=== PATIENT | female | born 1995 | race Caucasian/White ===

== ENCOUNTER 2021-10-30 10:11 | Outpatient (CLI) | payer OTHER, SELFPAY ==
[2021-10-30 11:27] LABS: Basophils Percent Auto 0.4 % (0.2-1.2); Eosinophils Percent Auto 0.3 % (0-4.4); Hematocrit 31.9 % (37.0-47.0); Hemoglobin 10.4 g/dL (12.0-15.0); Immature Granulocyte Absolute 0.06 K/mm3 (0.00-0.031); Immature Granulocyte Percent A 0.5 % (0-0.5); Lymphocytes Absolute Auto 1.28 K/mm3 (0.9-3.2); Lymphocytes Percent Auto 11.3 % (18.3-44.2); Mean Corpuscular HGB Conc 32.6 g/dl (32-36); Mean Corpuscular Hemoglobin 30.9 pg (26-34); Mean Corpuscular Volume 94.7 fl (80-100); Mean Platelet Volume 9.5 fl (7.4-10.4); Monocytes Absolute Auto 0.7 K/mm3 (0.1-0.6); Neutrophils Absolute Auto 9.3 K/mm3 (1.3-6.7); Neutrophils Percent Auto 81.5 % (45.5-73.1); Platelet Count Result 275 k/mm3 (150-375); Red Blood Count 3.37 M/mm3 (4.2-5.4); White Blood Count 11.3 K/mm3 (4.5-10.0)
[2021-10-30 11:41] LABS: Glucose 1 Hour PP 50gm Dose 109 mg/dL
== END 2021-10-30 10:12 | disposition home or self-care (01) ==
PROVIDERS: Visit Provider Obstetrics & Gynecology
DX: Z34.02 Encounter for supervision of normal first pregnancy, second trimester (principal)
CPT/HCPCS: 36415; 82947; 85025; 85461; 86900; 86901

== ENCOUNTER 2021-12-11 13:17 | Outpatient (CLI) | payer OTHER, SELFPAY ==
[2021-12-11 19:30] LABS: Basophils Percent Auto 0.3 % (0.2-1.2); Eosinophils Percent Auto 0.3 % (0-4.4); Hematocrit 32.4 % (37.0-47.0); Hemoglobin 10.6 g/dL (12.0-15.0); Immature Granulocyte Absolute 0.06 K/mm3 (0.00-0.031); Immature Granulocyte Percent A 0.6 % (0-0.5); Lymphocytes Absolute Auto 1.13 K/mm3 (0.9-3.2); Lymphocytes Percent Auto 12.2 % (18.3-44.2); Mean Corpuscular HGB Conc 32.7 g/dl (32-36); Mean Corpuscular Hemoglobin 31.2 pg (26-34); Mean Corpuscular Volume 95.3 fl (80-100); Monocytes Absolute Auto 0.4 K/mm3 (0.1-0.6); Monocytes Percent Auto 4.7 % (2.6-8.5); Neutrophils Absolute Auto 7.6 K/mm3 (1.3-6.7); Neutrophils Percent Auto 81.9 % (45.5-73.1); Platelet Count Result 234 k/mm3 (150-375); Red Cell Distribution Width 13.2 % (11.5-14.5); White Blood Count 9.2 K/mm3 (4.5-10.0)
[2021-12-11 22:33] LABS: HIV 1/2 Ab P24 Ag Result Negative (Negative)
[2021-12-12 16:31] LABS: Rapid Plasma Reagin Non-Reactive (NonReactive)
== END 2021-12-11 13:18 | disposition home or self-care (01) ==
PROVIDERS: Visit Provider Obstetrics & Gynecology
DX: Z34.03 Encounter for supervision of normal first pregnancy, third trimester (principal); Z3A.00 Weeks of gestation of pregnancy not specified
CPT/HCPCS: 36415; 85025; 86592; 86703; G0432

== ENCOUNTER 2022-01-13 15:27 | Observation (INO) | payer OTHER, SELFPAY ==
[2022-01-13 15:48] VITALS: BP 125/73; PULSE 93
[2022-01-13 15:51] VITALS: BMI 26.4
[2022-01-13 16:00] VITALS: BP 116/74; PULSE 91
[2022-01-13 16:15] VITALS: BP 118/72; PULSE 82
[2022-01-13 16:16] LABS: Add Urine Microscopic? YES; Appearance Urine Clear (Clear); Bilirubin Urine Negative (Negative); Blood Urine Negative (Negative); Color Urine Yellow (Yellow); Glucose Urine UA Negative (Negative); Ketones Urine Negative (Negative); Leukocyte Esterase Ur 1+ LEU/UL (NEGATIVE); Nitrate Urine Negative (Negative); Protein Urine Negative (Negative); Urobilinogen Urine 0.2 mg/dL (<2.0); pH Urine 6.5 (5.0-9.0)
[2022-01-13 16:25] LABS: Bacteria Urine 2+ /hpf; Mucus Urine Rare /lpf; Squamous Epithelial Cell Urine Occasional /hpf (Few)
[2022-01-13 16:30] VITALS: BP 121/77; PULSE 88
[2022-01-13 16:47] VITALS: BP 117/72; PULSE 78
[2022-01-13 17:00] VITALS: BP 114/68; PULSE 83
--- NOTE | 2022-02-03 11:44 | P.PNOB_ITS ---
OB - Triage/Final Diagnosis Visit Information Comments/Additional reasons for admission: I have assessed the risk for this patient, Nisa Smallwood, and determined that she would benefit from observation care. Evaluation Laboratory results: Laboratory Tests 01/13/22 16:02 Urine Color Yellow Urine Appearance Clear Urine pH 6.5 Ur Specific [place] 1.010 Urine Protein Negative Urine Glucose (UA) Negative Urine Ketones Negative Ur Blood (Man) Negative Urine Nitrate Negative Urine Bilirubin Negative Urine Urobilinogen 0.2 Ur Leukocyte Esterase 1+ H Urine RBC 3-5 H Urine WBC 7-9 H Ur Squamous Epith Cells Occasional Urine Bacteria 2+ H Urine Mucus Rare Final Diagnosis (1) Pelvic pain affecting : Code(s): O26.899 - Other specified related conditions, unspecified trimester; R10.2 - Pelvic and perineal pain Status: Acute
== END 2022-01-13 17:35 | disposition home or self-care (01) ==
PROVIDERS: Admitting Provider Student in an Organized Health Care Education/Training Program; Visit Provider Student in an Organized Health Care Education/Training Program
DX: O26.893 Other specified pregnancy related conditions, third trimester (principal); R10.2 Pelvic and perineal pain; Z3A.35 35 weeks gestation of pregnancy
CPT/HCPCS: 81001; 87086; G0378; G0379

== ENCOUNTER 2022-01-26 11:09 | Outpatient (CLI) | payer OTHER, SELFPAY ==
[2022-01-26] VITALS (17 sets, daily range): BP systolic 106–126; BP diastolic 51–72; PULSE 64–85; O2SAT 97–100
[2022-01-26 12:00] LABS: Alanine Aminotransferase 16 U/L (6-35); Albumin Level 3.5 g/dL (3.5-5.1); Alkaline Phosphatase 137 U/L (38-126); Anion Gap 10 mmol/L (8-16); Aspartate Amino Transferase 21 U/L (14-36); Bilirubin,Total 0.2 mg/dL (0.2-1.3); Blood Urea Nitrogen 6 mg/dL (7-17); Calcium 9.5 mg/dL (8.4-10.2); Carbon Dioxide 21 mmol/L (22-30); Chloride 103 mmol/L (98-107); Estimated Glomerular Filt Rate > 60; Glucose 87 mg/dL (65-110); Potassium 3.7 mmol/L (3.4-5.0); Sodium 134 mmol/L (137-145); Uric Acid 5.5 mg/dL (2.5-7.5)
[2022-01-26 12:01] LABS: Basophils Percent Auto 0.2 % (0.2-1.2); Eosinophils Percent Auto 0.1 % (0-4.4); Hematocrit 30.4 % (37.0-47.0); Hemoglobin 10.4 g/dL (12.0-15.0); Immature Granulocyte Absolute 0.04 K/mm3 (0.00-0.031); Immature Granulocyte Percent A 0.5 % (0-0.5); Lymphocytes Absolute Auto 1.05 K/mm3 (0.9-3.2); Lymphocytes Percent Auto 12.4 % (18.3-44.2); Mean Corpuscular HGB Conc 34.2 g/dl (32-36); Mean Corpuscular Volume 90.5 fl (80-100); Mean Platelet Volume 10.5 fl (7.4-10.4); Monocytes Absolute Auto 0.5 K/mm3 (0.1-0.6); Neutrophils Absolute Auto 6.9 K/mm3 (1.3-6.7); Neutrophils Percent Auto 80.8 % (45.5-73.1); Platelet Count Result 223 k/mm3 (150-375); Red Blood Count 3.36 M/mm3 (4.2-5.4); White Blood Count 8.5 K/mm3 (4.5-10.0)
[2022-01-26 12:02] LABS: Appearance Urine Clear (Clear); Bilirubin Urine Negative (Negative); Blood Urine Negative (Negative); Color Urine Yellow (Yellow); Glucose Urine UA Negative (Negative); Ketones Urine Negative (Negative); Leukocyte Esterase Ur 2+ LEU/UL (NEGATIVE); Nitrate Urine Negative (Negative); Protein Urine Negative (Negative); Urobilinogen Urine 0.2 mg/dL (<2.0); pH Urine 6.5 (5.0-9.0)
[2022-01-26 12:09] LABS: Creatinine Urine 25.7 mg/dL; Total Protein Urine Random 9 mg/dL; Ur Ttl Prot Creatinine Ratio 0.35 mg/mg (0-0.20)
[2022-01-26 12:14] LABS: Add Urine Microscopic? YES; Bacteria Urine 2+ /hpf; Squamous Epithelial Cell Urine Few /hpf (Few)
--- NOTE | 2022-01-26 12:50 | PC.NURSE ---
Dr. Solis notified of [facility] lab results and blood pressure readings. Reactive NST. Per Dr. Solis ok to discharge home and follow up with regular OB appointment on Wednesday. January 28.
== END 2022-01-26 12:34 | disposition home or self-care (01) ==
LOC: ANHOBOP 11:14 → ANHOBPP 11:14
PROVIDERS: Visit Provider Student in an Organized Health Care Education/Training Program
DX: O13.9 Gestational [pregnancy-induced] hypertension without significant proteinuria, unspecified trimester (principal); Z3A.00 Weeks of gestation of pregnancy not specified
CPT/HCPCS: 36415; 59025; 80053; 81001; 82570; 84156; 84550; 85025; 87086; 99199

== ENCOUNTER 2022-02-10 06:33 | Inpatient (IN) | payer OTHER, SELFPAY ==
[2022-02-10] VITALS (176 sets, daily range): BP systolic 99–155; BP diastolic 60–98; PULSE 58–130; RESP 16–17; TEMP 36.4–37.2; O2SAT 91–100; BMI 28.7
[2022-02-10] MEDS: LACTATED RINGERS 1,000 ML 125 ML IV CONT ×3 (07:28→15:12)
[2022-02-10 07:33] LABS: Basophils Percent Auto 0.3 % (0.2-1.2); Eosinophils Absolute Auto 0.1 K/mm3 (0-0.3); Eosinophils Percent Auto 0.5 % (0-4.4); Hematocrit 29.7 % (37.0-47.0); Immature Granulocyte Absolute 0.07 K/mm3 (0.00-0.031); Immature Granulocyte Percent A 0.8 % (0-0.5); Lymphocytes Absolute Auto 1.26 K/mm3 (0.9-3.2); Lymphocytes Percent Auto 13.7 % (18.3-44.2); Mean Corpuscular HGB Conc 33.7 g/dl (32-36); Mean Corpuscular Hemoglobin 30.2 pg (26-34); Mean Corpuscular Volume 89.7 fl (80-100); Mean Platelet Volume 10.7 fl (7.4-10.4); Monocytes Absolute Auto 0.6 K/mm3 (0.1-0.6); Monocytes Percent Auto 6.6 % (2.6-8.5); Neutrophils Absolute Auto 7.2 K/mm3 (1.3-6.7); Neutrophils Percent Auto 78.1 % (45.5-73.1); Platelet Count Result 223 k/mm3 (150-375); Red Blood Count 3.31 M/mm3 (4.2-5.4); Red Cell Distribution Width 12.8 % (11.5-14.5); White Blood Count 9.2 K/mm3 (4.5-10.0)
[2022-02-10] MEDS: OXYTOCIN 30 UNITS/NS 500 ML 30 UNITS/500 ML BAG 6 UNITS IV CONT (07:38)
--- NOTE | 2022-02-10 07:59 | LDADM ---
This patient, Nisa Smallwood, was admitted to Labor/Delivery/Recovery 104 on 02/10/22 at 06:33. Plans for labor, pain management and were discussed with patient. Patient/family oriented to hospital policies and general routines including ID bracelet, bed and alarms, visiting hours, pain management, procedures, bathroom and other care routines, personal items, smoking policy, room service/diet and guest tray routines, security routines, and visiting hours. Patient/Family are encouraged to report perceived risks to care and to ask questions if they do not understand what they are told or what they should do. See OBIX for further documentation.
[2022-02-10] MEDS: LACTATED RINGERS 1,000 ML 999 ML IV CONT (09:13)
[2022-02-10] MEDS: ONDANSETRON INJ 4 MG/2 ML VIAL IV PUSH ×2 (09:15→15:47)
[2022-02-10] MEDS: fentaNYL CITRATE INJ (*CRX) 100 MCG/2 ML VIAL IV PUSH (09:16)
--- NOTE | 2022-02-10 09:37 | WPDANESEPPF ---
Anes - Initial Pre Proc Eval Date/Time: 02/10/22 09:37 Surgeon: Lennie Solis MD Pre Op Diagnosis: iol Patient Data Age: 27 Gender: F Height: 1.55 m Weight: 69 kg Last Vital Signs Temp 37.2 C 02/10/22 09:01 Pulse 67 02/10/22 09:30 BP 144/81 H 02/10/22 09:30 Pulse Ox 96 02/10/22 09:37 Allergies Allergy/AdvReac Type Severity Reaction Status Date / Time No Known Allergies Allergy Verified 02/05/22 08:20 Home Medications Medication Instructions Recorded Confirmed Type ferrous sulfate 325 mg (65 mg 325 mg PO DAILY #90 tabs 12/15/21 02/10/22 Rx iron) tablet metoprolol succinate 25 mg 25 mg PO PRN PRN SVT 01/13/22 02/10/22 History tablet,extended release 24 hr buspirone 10 mg tablet 10 mg PO DAILY 02/10/22 02/10/22 History Laboratory Tests 02/10/22 02/10/22 02/10/22 07:19 07:19 07:19 WBC 9.2 K/mm3 K/mm3 (4.5-10.0) RBC 3.31 M/mm3 L M/mm3 (4.2-5.4) Hgb 10.0 g/dL L g/dL (12.0-15.0) Hct 29.7 % L % (37.0-47.0) MCV 89.7 fl fl (80-100) MCH 30.2 pg pg (26-34) MCHC 33.7 g/dl g/dl (32-36) RDW 12.8 % % (11.5-14.5) Plt Count 223 k/mm3 k/mm3 (150-375) MPV 10.7 fl H fl (7.4-10.4) Immature Gran % (Auto) 0.8 % H % (0-0.5) Neut % (Auto) 78.1 % H % (45.5-73.1) Lymph % (Auto) 13.7 % L % (18.3-44.2) Elk % (Auto) 6.6 % % (2.6-8.5) Eos % (Auto) 0.5 % % (0-4.4) Baso % (Auto) 0.3 % % (0.2-1.2) Lymph # (Auto) 1.26 K/mm3 K/mm3 (0.9-3.2) Elk # (Auto) 0.6 K/mm3 K/mm3 (0.1-0.6) Eos # (Auto) 0.1 K/mm3 K/mm3 (0-0.3) Baso # (Auto) 0.0 K/mm3 K/mm3 (0.0-0.1) Abs Immat Gran (auto) 0.07 K/mm3 H K/mm3 (0.00-0.031) Absolute Neuts (auto) 7.2 K/mm3 H K/mm3 (1.3-6.7) Absolute Nucleated RBC 0.0 K/mm3 K/mm3 (0.0-0.012) Nucleated RBC % 0.0 % % (0.0-0.2) RPR Pending Blood Type A Positive Antibody Screen Negative Patient hx anesthesia problems: none Family hx anesthesia problems: none Results Review: All pre-operative results and documents have been reviewed as part of the pre-operative evaluation. [facility] Past Medical History Medical History SVT (supraventricular tachycardia) Family History Family History Father Asthma Mother Heart disease Hearing loss, bilateral Grandparent Skin cancer Diabetes mellitus Heart disease Breast cancer Asthma Social History Social History Smoking status: Never smoker Second hand tobacco smoke exposure: No Alcohol intake: never Substance use: never Gender identity (if verbalized by the patient): Female Sexual Orientation (if Verbalized by the Patient): Straight or Heterosexual Spiritual care concerns: No Agree to blood products: Yes Anes - Eval Final PreProcedure Day of Procedure 02/10/22 09:37 Patient weight: overweight Heart: regular rate and rhythm Lungs: clear to auscultation and normal air movement Airway: Mallampati scale class II Neurological: alert and oriented Last oral intake: >/= 8 hours ASA classification: II Emergent: no Anesthetic plan: proceed Anesthesia type and monitoring: regional epidural Results Review: All pre-operative results and documents have been reviewed as part of the pre-operative evaluation. Informed Consent: The patient's anesthetic plan and its attendant risks and benefits were discussed with the patient/family/POA. Questions were solicited and answers provided to the satisfaction of the patient/family/POA.
--- NOTE | 2022-02-10 13:12 | PM.IMHP ---
H&P: HPI History of Present Illness Date/Time: 02/10/22 13:12 Chief Complaint: Elective induction of labor Narrative: Patient is a 27-year-old LMP 05/09/2021 currently 39 weeks 4 days gestation with DAYLIN 02/13/2022. Patient is dated by LMP consistent with ultrasound on 07/10/2021 at 9 weeks gestation. Patient presents to labor and delivery for a scheduled elective induction of labor. In general, patient doing well today. Reports occasional contractions. Denies any vaginal bleeding or leakage of fluid. Reports good movement. Review of Systems Review of Systems: All systems reviewed & are unremarkable except as noted in HPI and below Constitutional: Constitutional: Reports as per HPI and Reports no additional constitutional complaints Eyes: Eyes: Reports as per HPI and Reports no additional eye complaints ENT: Reports system reviewed and no additional complaints, except as documented and Reports as per HPI Cardiovascular: Cardiovascular: Reports as per HPI and Reports no additional cardiovascular complaints Respiratory: Respiratory: Reports as per HPI and Reports no additional respiratory complaints Gastrointestinal: Gastrointestinal: Reports as per HPI and Reports no additional gastrointestinal complaints Genitourinary: Genitourinary: Reports no additional female genitourinary complaints and Reports as per HPI Musculoskeletal: Musculoskeletal: Reports no additional musculoskeletal complaints and Reports as per HPI Integumentary/Breasts: Skin/Breast: Reports system reviewed and no additional complaints, except as docu and Reports as per HPI Neurologic: Reports system reviewed and no additional complaints, except as documented and Reports as per HPI Psychiatric: Psychiatric: Reports no additional psychiatric complaints and Reports as per HPI Endocrine: Endocrine: Reports no additional endocrine complaints and Reports as per HPI Hematologic/Lymphatic: Hematologic/Lymphatic: Reports no additional hematologic/lymphatic complaints and Reports as per HPI Allergic/Immunologic: Allergic/Immunologic: Reports no additional allergic/immunologic complaints and Reports as per HPI PMFSH Past Medical History Medical History SVT (supraventricular tachycardia) Family History Family History Father Asthma Mother Heart disease Hearing loss, bilateral Grandparent Skin cancer Diabetes mellitus Heart disease Breast cancer Asthma Social History Social History Smoking status: Never smoker Second hand tobacco smoke exposure: No Alcohol intake: never Substance use: never Gender identity (if verbalized by the patient): Female Sexual Orientation (if Verbalized by the Patient): Straight or Heterosexual Spiritual care concerns: No Agree to blood products: Yes Meds Home Medications and Allergies Home Medications Medication Instructions Recorded Confirmed Type ferrous sulfate 325 mg (65 mg 325 mg PO DAILY #90 tabs 12/15/21 02/10/22 Rx iron) tablet metoprolol succinate 25 mg 25 mg PO PRN PRN SVT 01/13/22 02/10/22 History tablet,extended release 24 hr buspirone 10 mg tablet 10 mg PO DAILY 02/10/22 02/10/22 History Allergies Allergy/AdvReac Type Severity Reaction Status Date / Time No Known Allergies Allergy Verified 02/05/22 08:20 Vital Signs Vital Signs - 24 hr 02/10/22 07:01 02/10/22 07:15 02/10/22 07:30 Temperature 37.2 C Pulse Rate 66 76 69 Blood Pressure 142/87 H 138/81 148/84 H Pulse Oximetry 02/10/22 07:45 02/10/22 08:00 02/10/22 08:21 Temperature Pulse Rate 67 71 71 Blood Pressure 149/90 H 151/95 H 141/87 H Pulse Oximetry 02/10/22 08:31 02/10/22 08:45 02/10/22 09:00 Temperature Pulse Rate 67 78 75 Blood Pressure 134/78 120/83 133/90 Pulse Oximetry 02/10/22 09:01 02/10
--- NOTE | 2022-02-10 13:20 | WPDHPUPDATE1 ---
History and Physical Update Update Date/Time: 02/10/22 13:20 History and Physical has been reviewed, including an updated exam of the patient. There are NO changes in the patient's condition. Risks, benefits, and alternatives have been discussed and questions answered. Patient agrees to proceed with procedure.
--- NOTE | 2022-02-10 15:58 | P.PNOB_ITS ---
Pain Control Date/time seen: 02/10/22 15:58 Patient doing well. SVE 9/100/0. EFM 135/minimal/+/-. [place] shows contractions q2-3 mins. Anticipate .
[2022-02-10] MEDS: LIDOCAINE HCL 1% PF 30 ML VIAL (17:31)
[2022-02-10] MEDS: OXYTOCIN 30 UNITS/NS 500 ML 30 UNITS/500 ML BAG 125 UNITS IV CONT (17:43)
--- NOTE | 2022-02-10 18:07 | PM.OBPRVD ---
OB - Delivery Note Procedure Delivery date: 02/10/22 Procedure: Patient is a 27-year-old now who presented to labor and delivery on the morning of 02/10/2022 at 39 weeks 4 days gestation for scheduled elective induction of labor. Pitocin was started for labor induction and was slowly titrated. Patient experienced spontaneous rupture of membranes at 10:51 a.m. Clear amniotic fluid was noted. Patient was found to be lucas frequently on own and pitocin was not restarted. Patient continued to make progressive cervical change. She became uncomfortable and requested an epidural for pain management which was placed without difficulty. Patient progressed to fully dilated at 4:45 p.m. Patient was encouraged to push and found to be pushing well. She was prepped and draped for delivery. At 5:08 p.m., patient delivered head atraumatically without difficulty in PETER presentation. Occiput restituted to maternal right side. With subsequent push, the 's neck, shoulders, and rest of body delivered without difficulty. was crying spontaneously. Infant's nose and mouth were suctioned with bulb suction. Infant was placed on maternal abdomen where care was assumed by awaiting nursing staff. Delayed cord clamping was performed for approximately 60 seconds. Cord was clamped and cut. A segment of cord was collected for cord gases. Cord blood was collected. The placenta was delivered spontaneously and intact. Uterine fundus was noted to be firm with massage. On inspection, a first-degree perineal laceration was noted. This laceration was repaired with 2-0 Vicryl in the usual fashion. Early during course, it was noted that patient had redundant vaginal tissue resembling a transverse vaginal septum. Segment of tissue was approximately 2 x 3 cm. Discussion was had previously in office regarding excision of this tissue following delivery while patient still anesthetized. Approximately 15 cc of 1% lidocaine was administered for additional local analgesia. Excess tissue was grasped with an Allis clamps and excised with a scalpel. Edges of excision were reapproximated with 3-0 Vicryl in a running locked fashion. Excellent hemostasis was noted. Estimated blood loss for entire delivery was 250 cc. The infant was a live-born male infant, Apgars 8 and 9, weight 8 lbs. 10 oz. Both mother and baby doing well at the end of delivery. Events: Elective Induction of Labor Induction method: Per Pitocin Protocol Delivery monitor: External FHT and External Uterine Route of delivery: Laceration Description: Perineal - 1st Degree Delivery repair: vicryl (2-0 ) Specimen: Yes (cord blood and cord gases) Quantitative Blood Loss (ml): 250 Anesthesia type: Epidural Disposition: Floor Complications: No immediate complications Broad Top Baby Date of : 02/10/22 Time of : 17:08 Weeks of gestation at delivery: 39 (39.4) gender: Male Weight (pounds): 8 Weight (ounces): 10 presentation: vertex position: Right Occiput Anterior Placenta delivery description: Spontaneous Cord Vessel Description: 3 Vessels and Delayed Cord Clamping (x60s) score one minute: 8 score five minutes: 9 AMG Delivery Billing Delivery Delivery: Delivery Charge
[2022-02-10] MEDS: IBUPROFEN 600 MG TABLET PO (19:19)
[2022-02-10] MEDS: BENZOCAINE 20% AER SPR (*SP) 56 GM CAN 1 SPRAY TOPICAL (20:06)
[2022-02-10] MEDS: WITCH HAZEL 40 PADS 1 PAD TOPICAL (20:06)
[2022-02-10] MEDS: ACETAMINOPHEN 325 MG TABLET 650 MG PO (22:00)
[2022-02-11] MEDS: IBUPROFEN 600 MG TABLET PO ×3 (03:40→20:37)
[2022-02-11 05:56] LABS: Hematocrit 20.5 % (37.0-47.0); Hemoglobin 6.9 g/dL (12.0-15.0)
--- NOTE | 2022-02-11 08:34 | WPDANLDPN2 ---
Anes-Prog Note L&D Date/Time: 02/11/22 08:34 Comfortable throughout: labor and delivery Neuraxial method: epidural Epidural/Spinal procedure site: tender Neuro status: Neuro function grossly intact. Cardiovascular status: normal Respiratory status: normal Airway patency: baseline Mental status: baseline Post-Op hydration status: normal and other (marked anemia Hgb 6.9) Vital Signs: Last Vital Signs Temp 98.4 F 02/10/22 20:35 Pulse 93 02/10/22 20:35 Resp 16 02/10/22 20:35 BP 119/72 02/10/22 20:35 Pulse Ox 91 02/10/22 17:09 O2 Del Method Room Air 02/10/22 20:35 Pain score (VAS): 2 I/O: Intake & Output 02/10/22 02/11/22 02/11/22 23:59 07:59 15:59 Intake Total 1000 Output Total 200 Balance 800 Post-procedural complaints: none Patient feedback: Patient satisfied with anesthetic care.
[2022-02-11] MEDS: MULTIVIT/MIN/PREN/FOL AC/IRON TABLET 1 TAB PO (08:35)
[2022-02-11] MEDS: POLYSACCHARIDE IRON COMPLEX 150 MG CAPSULE PO ×2 (08:35→16:01)
[2022-02-11] MEDS: DOCUSATE SODIUM 100 MG CAPSULE PO ×2 (08:35→16:01)
[2022-02-11] MEDS: busPIRone HCL 10 MG TABLET PO ×2 (08:36→20:37)
[2022-02-11] MEDS: ACETAMINOPHEN 325 MG TABLET 650 MG PO ×2 (08:40→16:01)
[2022-02-11 09:00] VITALS: BP 119/61; PULSE 78; RESP 18; TEMP 36.3; O2SAT 99
[2022-02-11 11:55] VITALS: BP 120/63; PULSE 78; RESP 16; TEMP 36.3; O2SAT 99
--- NOTE | 2022-02-11 13:03 | P.PNOB_ITS ---
OB - PN: Subj Subjective Date/time seen: 02/11/22 08:10 Patient doing well this morning. Reports mild cramping, well controlled medication. Minimal to moderate lochia. Voiding well. Ambulating without difficulty. OB - PN: Obj Data Labs CBC & Chem 7: 02/11/22 03:45 Labs: Laboratory Results - last 24 hr 02/11/22 03:45 Hgb 6.9 L* D Hct 20.5 L* OB - PN A/P Assessment and Plan (1) Normal spontaneous vaginal delivery: Code(s): O80 - Encounter for full-term uncomplicated delivery Status: Acute Assessment and Plan: PPD#1 doing well continue routine care anticipate dc home tomorrow (2) Anemia: Code(s): D64.9 - Anemia, unspecified Status: Acute Assessment and Plan: pt with Hgb 6.9 this AM asymptomatic will repeat H/H tomorrow AM Time Spent With Patient Time: Total time spent is greater than 50% in coordination of care (as documented) at patient's floor/unit and/or counseling patient: Review of Systems Constitutional: Constitutional: Reports as per HPI and Reports no additional c onstitutional complaints Gastrointestinal: Gastrointestinal: Reports as per HPI and Reports no additional gastrointestinal complaints Genitourinary: Genitourinary: Reports no additional female genitourinary complaints and Reports as per HPI Exam Const: General: cooperative, healthy appearing, comfortable and no acute distress GI: Inspection: non-distended GI Palp: Yes Soft to palpation and No Tenderness to palpation present (GI) Other: fundus firm below umbilicus Extrem: Right lower extremity: edema (trace) Left lower extremity: edema (trace) Other: no calf tenderness
[2022-02-11 15:36] LABS: Rapid Plasma Reagin Non-Reactive (NonReactive)
[2022-02-11 16:00] VITALS: BP 117/68; PULSE 90; RESP 16; TEMP 36.7; O2SAT 99
--- NOTE | 2022-02-11 17:08 | PC.NURSE ---
[id number] Introductions were made, then consulted with patient to assess needs related to . Mother led the conversation with her?plans to feed?her infant and the?experience so far. Resources provided for inpatient and outpatient services using a resource guide and mom/baby guide. Mother voiced understanding of information and requests assistance. Mother works well with her infant with encouragement and education. Encouraged understanding of the benefits of skin to skin (unwrapping and placing vertically on her chest), responsive feeding and how to watch for early feeding signs, frequency of feeding on demand about every 8-12 times in 24 hours (every 2-3 hours), milk production, hand expression with clean hands, duration of feeding, signs of adequate intake/output (using the pie demonstration) and how to record on the feeding sheet. Hand expressed 1/2 tsp of human milk and RN spoon fed with infant lapping it out of the spoon. Afterwards, was eager and demonstrated feeding cues. Reviewed positioning and ear, shoulder, hip alignment, supporting the breast, asymmetrical latch (off-center), and leading with the chin with a big open side gape. 1st attempt was able to effectively pull the inverted nipple out, then infant latched optimally to the right breast in football position. Education given to mother of how to visualize suck/swallow ratios and drinking at the breast. Infant was [able/unable] to maintain latch without discomfort to mother. Nipple care reviewed with optimal latch and good positioning. Resources used to facilitate learning were used with the visual handouts, tool, mom and baby guide. Mother voiced understanding of responsive feedings, stimulating with skin to skin, hand expressed colostrum, massage touch, talking to to encourage if it has been 2 -3 hours since the start of the last , to call if infant does not latch or there is discomfort with . Reported to the primary RN.
[2022-02-11 20:05] VITALS: BP 124/88; PULSE 90; RESP 16; TEMP 36.4; O2SAT 99
[2022-02-12] MEDS: IBUPROFEN 600 MG TABLET PO (04:35)
[2022-02-12 05:29] LABS: Hematocrit 19.5 % (37.0-47.0); Hemoglobin 6.4 g/dL (12.0-15.0)
[2022-02-12 06:13] LABS: HIV 1/2 Ab P24 Ag Result Negative (Negative)
[2022-02-12] MEDS: POLYSACCHARIDE IRON COMPLEX 150 MG CAPSULE PO (08:04)
[2022-02-12] MEDS: MULTIVIT/MIN/PREN/FOL AC/IRON TABLET 1 TAB PO (08:04)
[2022-02-12] MEDS: DOCUSATE SODIUM 100 MG CAPSULE PO (08:04)
[2022-02-12] MEDS: ACETAMINOPHEN 325 MG TABLET 650 MG PO (08:10)
[2022-02-12 08:55] VITALS: BP 126/82; PULSE 72; RESP 18; TEMP 36.9; O2SAT 100
--- NOTE | 2022-02-12 09:58 | PM.OBPNVD ---
OB - PN: Subj Subjective Date/time seen: 02/12/22 09:58 Patient doing well. Denies any abdominal pain cramping. Minimal to moderate lochia. Denies any heavy vaginal bleeding. Ambulating without difficulty. Voiding well. Patient denies any headache, shortness of breath, lightheadedness, or dizziness. OB - PN: Obj Data Labs CBC & Chem 7: 02/12/22 04:40 Labs: Laboratory Results - last 24 hr 02/10/22 02/12/22 02/12/22 07:19 04:40 04:40 Hgb 6.4 L* Hct 19.5 L* RPR Non-reactive HIV 1&2 Ab/P24 Ag 4thGn Negative OB - PN A/P Assessment and Plan (1) Normal spontaneous vaginal delivery: Code(s): O80 - Encounter for full-term uncomplicated delivery Status: Acute Assessment and Plan: PPD#2 doing well continue routine care dc home today in stable condition emergency precautions reviewed f/u in office in 4-6 weeks (2) Anemia: Code(s): D64.9 - Anemia, unspecified Status: Acute Assessment and Plan: pt with anemia Hgb 6.4 asymptomatic, reports feeling well not orthostatic denies heavy vaginal bleeding discussed risks/benefits of transfusion considering she is currently asymptomatic and vitals stable, do not necessary recommend transfusion at this time and will continue to monitor symptoms however, should she become symptomatic, would recommend advised to continue ferrous sulfate BID in addition to PNV at home Time Spent With Patient Time: Total time spent is greater than 50% in coordination of care (as documented) at patient's floor/unit and/or counseling patient: Review of Systems Review of Systems: All systems reviewed & are unremarkable except as noted in HPI and below Constitutional: Constitutional: Reports as per HPI and Reports no additional constitutional complaints Cardiovascular: Cardiovascular: Reports as per HPI and Reports no additional cardiovascular complaints Respiratory: Respiratory: Reports as per HPI and Reports no additional respiratory complaints Gastrointestinal: Gastrointestinal: Reports as per HPI and Reports no additional gastrointestinal complaints Genitourinary: Genitourinary: Reports no additional female genitourinary complaints and Reports as per HPI Exam Const: General: cooperative, healthy appearing, comfortable and no acute distress GI: Inspection: non-distended GI Palp: Yes Soft to palpation and No Tenderness to palpation present (GI) Other: fundus firm below umbilicus Extrem: Right lower extremity: edema Details: 2+ Left lower extremity: edema Details: 2+ Other: no calf tenderness
--- NOTE | 2022-02-12 10:04 | P.DS_ITS ---
DS: Admitting Diagnosis Discharge Date 02/12/22 Admitting Diagnosis IUP at 39w4d gestation Elective induction of labor DS: Discharge Diagnosis Discharge Diagnosis (1) Normal spontaneous vaginal delivery: Code(s): O80 - Encounter for full-term uncomplicated delivery Status: Acute OB - DS: Summary OB Procedures : None OB Procedures Intrapartum: Spontaneous Vag Delivery OB Procedures: : None Time Spent with Patient Time attestation: Total time spent providing and/or coordinating discharge services: DS: Data Data Completed and Pending Labs on day of discharge: Labs from last 24 hours 02/12/22 02/12/22 02/10/22 04:40 04:40 07:19 Hgb 6.4 L* Hct 19.5 L* RPR Non-reactive HIV 1&2 Ab/P24 Ag 4thGn Negative Discharge Plan Discharge Attending physician on discharge: Lennie Solis Discharging Clinician: Lennie Solis Anticipated Discharge Date/Time: 02/12/22 10:05 Patient Disposition: Home, Self-Care Activity: as tolerated and pelvic rest Diet: regular Discharge Instructions: Call office ([phone]) to schedule a visit in 4-6 weeks. You may take Ibuprofen 600mg every 6 hours as needed for pain. You also have a low blood count, anemia. Please continue to take ferrous sulfate 325mg every 12 hours. Pain medication may make you constipated. It may be helpful to take an [id number] stool softener, such as Colace and/or Senokot, along with the pain medication to help lessen constipation. Call office or go to ED for pain not controlled with medication, headache, chest pain, shortness of breath, fever, chills, persistent nausea or vomiting, severe abdominal pain, heavy vaginal bleeding >2 pads/hour, foul vaginal discharge or odor, or problems with your breasts. Patient Instructions: Antibiotic Form Stand Alone Forms: General Discharge Information Follow-up/Referrals: Lennie Solis MD [Physician] - Discharge Medications: Continued buspirone 10 mg tablet 10 mg PO DAILY metoprolol succinate 25 mg tablet extended release 24 hr 25 mg PO PRN PRN (Reason: SVT) Changed ferrous sulfate 325 mg (65 mg iron) tablet 325 mg PO BID Qty: 90 2RF Date of admission: 02/10/22 06:33 Primary Care Provider: PHYSICIAN,[employer] Admitting Provider: Lennie Solis Attending physician on admission: Lennie Solis Condition: Stable
--- NOTE | 2022-02-12 10:25 | PC.NURSE ---
[id number] Mother led the conversation with her experience and plan to feed her so far and her ability to independently latch optimally without discomfort. Reminded parents to use good handwashing technique to prevent infection. Mother is feeding appropriately for growth of and understands stimulating to eat if needed. Infant has had appropriate feedings in the last 24 hours meets the outcomes for weight, output and jaundice at this time. Mother states she is confident to continue effectively breastfeed her infant at home or when to call for assistance and denies any additional assistance or education at this time. Reinforced understanding of milk production, transition of milk, signs of adequate intake, prevention/relief of engorgement, responsive after visualizing feeding cues, the different methods of stimulating to breastfeed 2-3 hours after the start of the last feeding, community resources, medication information reviewed per [facility] and when to call a provider using the resource of the mom and baby guide/[facility] website. Mother voiced understanding of the education shared.
--- NOTE | 2022-02-12 12:10 | PC.NURSE ---
Patient viewed the discharge video Mother & Baby Care, The First Two Weeks . Patient was given the opportunity and encouraged to ask questions. Patient verbalized understanding of information shared and has been given the mother/baby guide for home reference.
[2022-02-13 09:34] VITALS: BP 123/74; PULSE 74; RESP 20; TEMP 36.8; O2SAT 99
== END 2022-02-12 12:31 | disposition home or self-care (01) | DRG 806 ==
LOC: ANHLDR 06:44 → ANHOB2 20:22
PROVIDERS: Obstetrics & Gynecology; Admitting Provider Student in an Organized Health Care Education/Training Program; Visit Provider Student in an Organized Health Care Education/Training Program
DX: O99.42 Diseases of the circulatory system complicating childbirth; I47.1 Supraventricular tachycardia; Z37.0 Single live birth; Z23 Encounter for immunization; O70.0 First degree perineal laceration during delivery; O99.02 Anemia complicating childbirth; Z3A.39 39 weeks gestation of pregnancy
CPT/HCPCS: 36415; 85014; 85018; 85025; 86592; 86703; 86850; 86900; 86901; 90471; 90686; A9270; G0008; G0432; J2405; J2590; J2795; J3010; J7120

== ENCOUNTER 2022-09-03 15:42 | Outpatient (CLI) | payer OTHER, SELFPAY ==
[2022-09-03 19:24] LABS: Basophils Absolute Auto 0.1 K/mm3 (0.0-0.1); Eosinophils Absolute Auto 0.1 K/mm3 (0-0.3); Eosinophils Percent Auto 1.5 % (0-4.4); Hemoglobin 12.4 g/dL (12.0-15.0); Immature Granulocyte Absolute 0.01 K/mm3 (0.00-0.031); Immature Granulocyte Percent A 0.2 % (0-0.5); Lymphocytes Absolute Auto 1.71 K/mm3 (0.9-3.2); Lymphocytes Percent Auto 27.6 % (18.3-44.2); Mean Corpuscular HGB Conc 32.6 g/dl (32-36); Mean Corpuscular Hemoglobin 29.5 pg (26-34); Mean Corpuscular Volume 90.3 fl (80-100); Mean Platelet Volume 10.7 fl (7.4-10.4); Monocytes Absolute Auto 0.5 K/mm3 (0.1-0.6); Monocytes Percent Auto 8.6 % (2.6-8.5); Neutrophils Absolute Auto 3.8 K/mm3 (1.3-6.7); Neutrophils Percent Auto 61.1 % (45.5-73.1); Platelet Count Result 326 k/mm3 (150-375); Red Blood Count 4.21 M/mm3 (4.2-5.4); Red Cell Distribution Width 13.1 % (11.5-14.5); White Blood Count 6.2 K/mm3 (4.5-10.0)
[2022-09-03 19:40] LABS: Alanine Aminotransferase 20 U/L (6-35); Albumin Level 4.6 g/dL (3.5-5.1); Alkaline Phosphatase 63 U/L (38-126); Anion Gap 7 mmol/L (8-16); Aspartate Amino Transferase 39 U/L (14-36); Bilirubin,Total 0.4 mg/dL (0.2-1.3); Blood Urea Nitrogen 11 mg/dL (7-17); Calcium 9.3 mg/dL (8.4-10.2); Carbon Dioxide 27 mmol/L (22-30); Chloride 103 mmol/L (98-107); Cholesterol 164 mg/dL (0-200); Estimated Glomerular Filt Rate > 60; Glucose 135 mg/dL (65-110); HDL Direct 47 mg/dL; Potassium 3.9 mmol/L (3.4-5.0); Sodium 137 mmol/L (137-145); Triglycerides 107 mg/dL (<150)
[2022-09-03 19:51] LABS: LDL Cholesterol Direct 87 mg/dL
[2022-09-03 20:10] LABS: Thyroid Stimulating Hormone 0.418 uIU/mL (0.465-4.680)
[2022-09-03 20:14] LABS: Free T4 Free Thyroxine 1.02 ng/mL (0.78-2.19)
== END 2022-09-03 15:43 | disposition home or self-care (01) ==
LOC: ANHBWCLAB 15:43
PROVIDERS: PCP Internal Medicine; Visit Provider Registered Nurse
DX: Z00.00 Encounter for general adult medical examination without abnormal findings (principal); E04.9 Nontoxic goiter, unspecified
CPT/HCPCS: 36415; 80053; 80061; 84439; 84443; 85025

== ENCOUNTER 2022-09-24 14:32 | Outpatient (CLI) | payer OTHER, SELFPAY ==
--- NOTE | ~2022-09-24 | US_ITS ---
EXAMINATION: US axilla RT INDICATION: Right axillary swelling and lump TECHNIQUE: Targeted ultrasound is performed of the right axilla. COMPARISON: None available FINDINGS: No suspicious cystic or solid mass is identified. There are normal-appearing right axillary lymph nodes. IMPRESSION: 1. No suspicious sonographic correlate is identified for the reported palpable abnormality of concern . Further evaluation at this time should be based on clinical assessment. Continued follow-up physica l examination is recommended. BI-RADS Category 1: Negative Reviewed, dictated and finalized at location A. IMPRESSION: 1. No suspicious sonographic correlate is identified for the reported palpable abnormality of concern. Further evaluation at this time should be based on clin ical assessment. Continued follow-up physical examination is recommended. BI-RADS Category 1: Negative
--- NOTE | ~2022-09-24 | US_ITS ---
EXAMINATION: US thyroid DATE: 09/24/2022 15:32 INDICATION: Nontoxic single thyroid nodule TECHNIQUE: Multiple ultrasound images of the thyroid were obtained. COMPARISON: None. FINDINGS: The right thyroid lobe measures 4.3 x 1.8 x 2.1 cm. The left thyroid lobe measures 6.2 x 2.1 x 2.1 c m. 4 mm mixed solid and cystic nodule in the right thyroid lobe with smooth margins and isoechoic so lid component (TI-RADS 2, not suspicious, no FNA recommended). 2.9 cm wider than tall solid hypoechoi c nodule with lobular margins in the mid to inferior left thyroid and without echogenic foci (TI-RADS 4, moderately suspicious , FNA if >=1.5 cm, annual followup is >=1 cm). 1.2 cm wider than tall solid isoechoic nodule with hypoechoic halo in the mid left thyroid and without echogenic foci (TI-RADS 3, mildly suspicious , FNA if >=2.5 cm, annual followup is >=1.5 cm). 1.3 cm TI RADS 4 wider than tall solid hypoechoic nodule without echogenic foci at the inferior left thyroid lobe. IMPRESSION: 1. Multinodular goiter. Recommend ultrasound-guided biopsy of the 2.9 cm TI RADS 4 left thyroid nodul e. Reviewed, dictated and finalized at location A. IMPRESSION: 1. Multinodular goiter. Recommend ultrasound-guided biopsy of the 2.9 cm TI RAD S 4 left thyroid nodule.
== END 2022-09-24 14:33 | disposition home or self-care (01) ==
PROVIDERS: PCP Internal Medicine; Visit Provider Registered Nurse
DX: R22.30 Localized swelling, mass and lump, unspecified upper limb (principal); E04.2 Nontoxic multinodular goiter
CPT/HCPCS: 76536; 76882

== ENCOUNTER 2025-04-05 14:07 | Outpatient (CLI) | payer BC, SELFPAY ==
[2025-04-05 14:52] LABS: Hematocrit 34.2 % (37.0-47.0); Hemoglobin 11.4 g/dL (12.0-15.0); Mean Corpuscular HGB Conc 33.3 g/dl (32-36); Mean Corpuscular Hemoglobin 29.7 pg (26-34); Mean Corpuscular Volume 89.1 fl (80-100); Platelet Count Result 303 k/mm3 (150-375); Red Blood Count 3.84 M/mm3 (4.2-5.4); White Blood Count 9.6 K/mm3 (4.5-10.0)
[2025-04-05 15:35] LABS: HIV 1/2 Ab P24 Ag Result Negative (Negative)
[2025-04-05 18:07] LABS: Syphilis IgG/IgM Antibody Non-Reactive (Nonreactive)
[2025-04-05 18:18] LABS: Hepatitis B Surface Antigen Negative (Negative)
[2025-04-06 07:09] LABS: Varicella-Zoster Ab, IgG Reactive (Non Reactive)
== END 2025-04-05 14:08 | disposition home or self-care (01) ==
LOC: ANHLAB 14:08
PROVIDERS: PCP Internal Medicine; Visit Provider Obstetrics & Gynecology
DX: Z34.90 Encounter for supervision of normal pregnancy, unspecified, unspecified trimester (principal)
CPT/HCPCS: 36415; 81279; 85027; 86593; 86703; 86762; 86787; 86803; 86850; 86900; 86901; 87086; 87340; G0432

== ENCOUNTER 2025-04-09 19:29 | Emergency (ER) | payer BC, SELFPAY ==
--- OUTSIDE RECORDS SUMMARY | 2025-04-09 19:32 | XMS_ITS | Clinical Summary ---
Author Organization [facility] Address [address] [place] [address] Phone Care Team Providers Care Visual Training Aide Name Role Phone Unavailable Primary Care Provider Unavailabl e Social History Tobacco Use Types Packs/Day Years Used Date Smoking Tobacco: Never Assessed Comments Unknown Sex and Gender Information Value Date Recorded Sex Assigned at Not on file Legal Sex Female 1:43 PM CDT Gender Identity Not on file Sexual Orientation Not on file Plan of Treatment Health Maintenance Due Date Last Done Comments DTAP/TDAP/TD VACCINES (1 - Tdap) 01/21/2015 HEPATITIS B VACCINES (1 of 3 - 19+ 3-dose series) 11/2014 CERVICAL CANCER SCREENING 01/21/2017 HPV/Cotest (21-29) 01/21/2017 PAP SMEAR 01/21/2017 HPV VACCINES (1 - 3-dose SCDM series) 01/21/2023 INFLUENZA VACCINE (#1) [address]
[2025-04-09 19:45] VITALS: BP 122/58; PULSE 116; RESP 15; TEMP 36.6; O2SAT 100
[2025-04-09 20:54] LABS: Add Urine Microscopic? NO; Appearance Urine Clear (Clear); Glucose Urine UA Negative (Negative); Leukocyte Esterase Ur Negative LEU/UL (Negative); Nitrate Urine Negative (Negative); Specific Grav Ur 1.005 (1.001-1.035)
[2025-04-09 21:26] VITALS: BP 108/72; PULSE 75; RESP 17; O2SAT 100
--- NOTE | 2025-04-09 21:36 | ED.FEMALEGU ---
HPI - Female Genitourinary General Chief complaint: Urogenital-Female Stated complaint: urinary retention/13 weeks Time Seen by Provider: 04/09/25 20:15 Source: patient Mode of arrival: ambulatory Limitations: no limitations History of Present Illness HPI Narrative: Patient is a 30 y/o female who presents to the ED with c/o difficulty urinating. Patient is currently 13 weeks gestation. Has had confirmed IUP, no abnormalities so far with this . She reports having difficulty urinating today. States she was last able to urinate around 3:00 p.m.. Feels the need to urinate as well as bladder pressure/pain, but is unable to pass any urine. She does have history of previous bladder and uterine prolapse from previous , but states she is typically able to maneuver herself to empty her bladder. Denies any vaginal bleeding, fevers, recent dysuria or hematuria. OB is Dr Brown Related Data Home Medications ?Medication ?Instructions ?Recorded ?Confirmed ?Last Taken ?Type No Home Medications 11/27/24 04/05/25 Unknown History Allergies Allergy/AdvReac Type Severity Reaction Status Date / Time No Known Allergies Allergy Verified 04/09/25 19:45 Review of Systems Review of Systems: All systems reviewed & are unremarkable except as noted in HPI. All systems reviewed & are unremarkable except as noted in HPI and below PMFSH Past Medical History Medical History Normal spontaneous vaginal delivery Anxiety SVT (supraventricular tachycardia) Family History Family History Father Asthma Mother Heart disease Hearing loss, bilateral Grandparent Skin cancer Diabetes mellitus Heart disease Breast cancer Asthma Social History Social History Smoking status: Never smoker Second hand tobacco smoke exposure: No Alcohol intake: never Substance use: never Gender identity (if verbalized by the patient): Female Sexual Orientation (if Verbalized by the Patient): Straight or Heterosexual Spiritual care concerns: No Agree to blood products: Yes Exam Narrative: GENERAL: Mildly uncomfortable appearing, well-nourished, non-toxic, in no acute distress. HEAD: Normocephalic, atraumatic. RESPIRATORY: Airway patent, respirations nonlabored. Clear to auscultation bilaterally, no rales, rhonchi, wheezing. CARDIOVASCULAR: Regular rate and rhythm without murmurs, rubs, or gallops. ABDOMINAL: Soft, diffuse tenderness/fullness in lower abdomen, nondistended. Normoactive BS. MUSCULOSKELETAL: Moves all extremities. No gross deformities. SKIN: Warm, dry, normal color. NEURO: A&O X3. Speech clear. Cranial nerves II-XII grossly intact. Steady gait. No ataxic movements. PSYCHIATRIC: Appropriate mood and affect. Normal interaction. Course Vital Signs Vital signs: Vital Signs Temperature 97.8 F 04/09/25 19:45 Pulse Rate 116 H 04/09/25 19:45 Respiratory Rate 15 04/09/25 19:45 Blood Pressure 122/58 L 04/09/25 19:45 Pulse Oximetry 100 04/09/25 19:45 Oxygen Delivery Room Air 04/09/25 19:45 Temperature 97.8 F 04/09/25 19:45 Pulse Rate 75 04/09/25 21:26 Respiratory Rate 17 04/09/25 21:26 Blood Pressure 108/72 04/09/25 21:26 Pulse Oximetry 100 04/09/25 21:26 Oxygen Delivery Room Air 04/09/25 19:45 MDM - Female Genitourinary MDM Narrative Medical decision making narrative: Patient presented to ED with urinary retention. States she has not been able to urinate since around 3:00 p.m. today. History of bladder and uterine prolapse from previous pregnancies, but denies having difficulty urinating typically. Patient tachycardic upon arrival. Uncomfortable appearing. Bladder scan was performed and showing greater than 800 mL in bladder. Discussed this with patient. Discussed need for a catheter. Discussed Horner catheter placement versus straight cath and attempted voiding challenge afterwards. Patient would prefer to try straight cath and voiding afterwards. UA was obtained via straight catheterization and without evidence of blood or infection. Patient feeling significantly better afterwards. heart tones were difficult to consistently here. I utilized bedside ultrasound to visualize good movement and active heart flutter. Patient and family reassured by this. She did have an ultrasound a few days ago that was normal. Patient was able to urinate afterwards and denied any issues in doing so. States she feels ready to go home at this time. She does mention that she held her bladder for a prolonged period at work today and thinks that caused her to have the acute retention. Likely also related to anatomical changes related to bladder and uterine prolapse. Advised very close follow-up with OBGYN for further evaluation. Given strict return precautions. She is in agreement with plan. Discharged in stable condition. Medical Records Attestation: I reviewed the patient's medical records. Lab Data Attestation: I reviewed the patient's lab results. Labs: Lab Results 04/09/25 Range/Units 20:46 Urine Color Yellow (Yellow) Urine Appearance Clear (Clear) Urine pH 6.5 (5.0-9.0) Ur Specific [place] 1.005 (1.001-1.035) Urine Protein Negative (Negative) mg/dL Urine Glucose (UA) Negative (Negative) mg/dL Urine Ketones Negative (Negative) mg/dL Ur Blood (Man) Negative (Negative) Urine Nitrate Negative (Negative) Urine Bilirubin Negative (Negative) Urine Urobilinogen 0.2 (<2.0) mg/dL Leukocyte Esterase Rfl Negative (Negative) ALISSA/UL Discharge Plan Discharge Clinical Impression: Acute urinary retention, History of prolapse of bladder, 13 weeks gestation of Patient Disposition: Home Condition: Stable Instructions: Antibiotic Form, Acute Urinary Retention in Women (ED) Additional Instructions: Follow-up closely with your OBGYN for further evaluation. Return for recurrent issues, unable to urinate, severe pain, vaginal bleeding, fevers, or any other symptoms of concern. Patient Language: Irish Prescriptions: No Action No Home Medications Follow-up/Referrals: Pablo,Skyler Khan MD [Primary Care Provider] Time of Disposition: 21:37
== END 2025-04-09 21:43 | disposition home or self-care (01) ==
PROVIDERS: Emergency Provider Physician Assistant; PCP Internal Medicine
DX: R33.9 Retention of urine, unspecified (principal); O34.81 Maternal care for other abnormalities of pelvic organs, first trimester; N81.10 Cystocele, unspecified; Z3A.13 13 weeks gestation of pregnancy
CPT/HCPCS: 81003; 99283